=== PATIENT | male | born 1950 | race Caucasian/White ===

== ENCOUNTER → 2021-12-22 | Outpatient (CLI) | payer MEDICARE, OTHER ==
[~2021-12-22] MED LIST: ACET325 PO; ALLO300 PO; AMLO5 PO; ATOR20 PO; DEXA2 PO; Flexeril10 MG PO; REMDESIVIR IV; TELM40 PO; XARELTO15 MG PO; ZOLOFT25 MG PO
== END | disposition home or self-care (01) ==
LOC: PLD 14:58 → LAB 14:58 → LAB SHORT 14:58
DX: D22.5 Melanocytic nevi of trunk (principal)
CPT/HCPCS: 88305

== ENCOUNTER 2025-01-12 08:07 | Day surgery (SDC) | payer MEDICARE, OTHER ==
[~2025-01-12] VITALS: Ht 180.3 cm; Wt 112.4 kg
[~2025-01-12 08:07] MED LIST changes: +Aspir 8181 MG PO; +ELIQUIS5 M2 PO; +GLUC500 PO; +ONDA4ODT MM; +OXAYDO5 M1 PO; +SULTRIDS PO; +TESTOSTERONE60 GM TOP; +Vitamin D1000 UNI1 PO; +Voltaren100 GM TOP
[2025-01-12] MEDS ORDERED: CeFAZolin Sodium 2,000 MG VIAL ONE (08:14)
[2025-01-12] MEDS ORDERED: NAPR500 PO (08:31)
[2025-01-12] MEDS ORDERED: MAGNESIUM OXID500 MG PO (08:31)
[2025-01-12] MEDS ORDERED: TADA10TA (08:31)
[2025-01-12] MEDS ORDERED: NS 1,000 ML IV ONE (08:46)
--- NOTE | 2025-01-12 08:48 | NUR ---
01/12/25 0848 SANIA RIVERA RESTING ON GURNEY, LAUGHING/TALKING. CALL LIGHT IN REACH, RAILS UP. DENIES NEEDS/QUESTIONS AT THIS TIME.
[2025-01-12] MEDS ORDERED: Lidocaine 1%-Epineph 1:200000 30 ML SDV ONE (08:57)
--- NOTE | 2025-01-12 09:49 | NUR ---
01/12/25 0949 TALITA PRATT NO ANESTHESIA FOR THIS CASE. BLOCK ONLY
[2025-01-12 09:51] VITALS: BP 138/88
== END 2025-01-12 10:17 | disposition home or self-care (01) ==
LOC: ORSCSDS 08:07
PROVIDERS: Orthopaedic Surgery
PROC: 01N50ZZ Release Median Nerve, Open Approach (ICD-10-PCS; principal; 2025-01-12 09:45)
DX: G56.03 Carpal tunnel syndrome, bilateral upper limbs (principal); I10 Essential (primary) hypertension; I48.91 Unspecified atrial fibrillation; F32.A Depression, unspecified; E78.00 Pure hypercholesterolemia, unspecified; D72.820 Lymphocytosis (symptomatic); Z79.01 Long term (current) use of anticoagulants; Z79.899 Other long term (current) drug therapy; Z87.891 Personal history of nicotine dependence
CPT/HCPCS: J0690